=== PATIENT | female | born 1990 | race Caucasian/White ===

== ENCOUNTER 2016-09-22 19:38 | Emergency (ER) | payer BC, MEDICAID ==
[2016-09-22] MEDS ORDERED: Sodium Chloride 0.9% 1000 ML 1,000 ML IV STA (20:01)
[2016-09-22] MEDS ORDERED: Zofran 4 MG/2 ML VIAL IV ONE (20:07)
--- NOTE | 2016-09-22 20:07 | ERPHSYRPT ---
- History of Present Illness Time Seen by Provider: 09/22/16 20:03 Source: patient Exam Limitations: no limitations Physician History: This is a 26-year-old white female she arrives with complaint of cough congestion fever persistent vomiting symptoms for 2 days she states she's been having some left upper quadrant abdominal pain she denies any diarrhea denies any urinary symptoms. Past medical history is negative Past surgical history includes tonsillectomy and adenoidectomy C-sections and myringotomy tubes. Timing/Duration: day(s) (2 days) Severity: moderate Modifying Factors: Improves With: acetaminophen Associated Symptoms: nausea, vomiting, abdominal pain (left upper quadrant abdominal pain left middle quadrant abdominal amanuel), cough, fever, No shortness of breath, No heartburn, No diaphoresis, No chills, No chest pain, No headaches , No loss of appetite, No malaise, No rash, No syncope, No seizure, No weakness Allergies/Adverse Reactions: latex [Latex] Allergy (Verified 09/22/16 20:05) Hx Tetanus, Diphtheria Vaccination/Date Given: No Hx Influenza Vaccination/Date Given: Yes (04/2012) Hx Pneumococcal Vaccination/Date Given: No - Review of Systems Constitutional: Fever, No Chills, No Fatigue, No Lethargy, No Malaise, No Night Sweats, No Weakness, No Weight Loss Eyes: No Symptoms, Other Ears, Nose, & Throat: Ear Pain (right ear pain), Nose Congestion, No Ear Discharge, No Hearing Changes, No Tinnitus, No Nose Pain, No Nose Discharge, No Sinus Drainage, No Epistaxis, No Mouth Pain, No Mouth Swelling, No Loose Teeth, No Throat Pain, No Throat Swelling, No Hoarse, No Painful Swallowing, No Snoring Respiratory: Cough, No Cyanosis, No Dyspnea, No Dyspnea on Exertion ([place]), No Stridor, No Wheezing Cardiac: No Chest Pain, No Edema, No Syncope Abdominal/Gastrointestinal: Abdominal Pain (left upper quadrant left middle quadrant abdominal pain), Nausea, Vomiting, No Diarrhea, No Constipation, No Hematemesis, No Hematochezia, No Melena, No Dysphagia, No Appetite Changes Genitourinary Symptoms: No Dysuria Musculoskeletal: No Back Pain, No Neck Pain Skin: No Rash Neurological: No Dizziness, No Focal Weakness, No Sensory Changes Psychological: No Symptoms Endocrine: No Symptoms All Other Systems: Reviewed and Negative - Past Medical History Pertinent Past Medical History: No Neurological History: No Pertinent History ENT History: No Pertinent History Cardiac History: No Pertinent History Respiratory History: No Pertinent History Endocrine Medical History: No Pertinent History Musculoskeletal History: No Pertinent History GI Medical History: No Pertinent History History: No Pertinent History Psycho-Social History: No Pertinent History Female Reproductive Disorders: No Pertinent History - Past Surgical History Past Surgical History: Yes Neuro Surgical History: No Pertinent History Cardiac: No Pertinent History Respiratory: No Pertinent History Gastrointestinal: No Pertinent History Genitourinary: No Pertinent History Musculoskeletal: No Pertinent History Female Surgical History: Section - Social History Smoking Status: Never smoker Exposure to second hand smoke: No Drug Use: none Patient Lives Alone: No - Female History Hx Now: Yes - Nursing Vital Signs Nursing Vital Signs: Initial Vital Signs Temperature 100.3 F Temperature Source Oral Pulse Rate 96 Respiratory Rate 16 Blood Pressure [Right Arm] 130/78 Pain Intensity 4 - Physical Exam General Appearance: mild distress (Augmentin) Eye Exam: PERRL/EOMI, eyes nml inspection, other (fundi are unremarkable) Ears, Nose, Throat Exam: moist mucous membranes, TM abnormal (L) ( right TM erythematous), No TMs normal (Right TM erythematous), No pharyngeal erythema, No tonsillar exudate Neck Exam: normal inspection, non-tender, supple, full range of motion Respiratory Exam: normal breath sounds, lungs clear, No respiratory distress Cardiovascular Exam: regular rate/rhythm, normal heart sounds, normal peripheral pulses Gastrointestinal/Abdomen Exam: soft, normal bowel sounds, tenderness (left middle and upper quadrant abdominal pain), No mass, No rebound Back Exam: normal inspection, normal range of motion, No CVA tenderness, No vertebral tenderness Extremity Exam: normal inspection, normal range of motion, pelvis stable Neurologic Exam: alert, oriented x 3, cooperative, normal mood/affect, nml cerebellar function, nml station & gait, sensation nml, No motor deficits Skin Exam: normal color, warm, dry, No rash Lymphatic Exam: No adenopathy SpO2 Interpretation: normal (97%) SpO2: 97 Oxygen Delivery: Room Air - Course Nursing assessment & vital signs reviewed: Yes Ordered Tests: Active Orders 24 hr Category Date Time Status Clean Catch Urine Specimen STAT Care 09/22/16 20:07 Active IV Insertion STAT Care 09/22/16 20:01 Active Orthostatic Vital Signs STAT Care 09/22/16 20:56 Active AMYLASE Stat Lab 09/22/16 20:15 Completed CBC W DIFF Stat Lab 09/22/16 20:15 Completed CMP Stat Lab 09/22/16 20:15 Completed CULTURE, THROAT Stat Lab 09/22/16 20:20 Received HCG QUALITATIVE,SERUM Stat Lab 09/22/16 20:15 Completed LIPASE Stat Lab 09/22/16 20:15 Completed STREP SCREEN-BETA A Stat Lab 09/22/16 20:20 Completed UA W/ MICROSCOPIC Stat Lab 09/22/16 20:10 Completed Medication Summary Discontinued Medications Generic Name Dose Route Start Last Admin Trade Name Freq PRN Reason Stop Dose Admin Amoxicillin 500 mg 09/22/16 22:00 Amoxil 500 Mg PO 09/22/16 22:01 STAT ONE Sodium Chloride 1,000 mls @ 999 mls/hr 09/22/16 20:01 09/22/16 20:22 Sodium Chloride 0.9% 1000 Ml IV 09/22/16 21:01 999 mls/hr .Q1H1M STA Administration Sodium Chloride Confirm 09/22/16 20:20 Sodium Chloride 0.9% 1000 Ml Administered 09/22/16 20:21 Dose 1,000 mls @ ud .ROUTE .STK-MED ONE Ondansetron HCl 4 mg 09/22/16 20:07 09/22/16 20:21 Zofran 4 Mg/2 Ml Vial IV 09/22/16 20:08 4 mg STAT ONE Administration Ondansetron HCl Confirm 09/22/16 20:20 Zofran 4 Mg/2 Ml Vial Administered 09/22/16 20:21 Dose 4 mg .ROUTE .STK-MED ONE Oseltamivir Phosphate 75 mg 09/22/16 21:54 Tamiflu 75mg Capsule PO 09/22/16 21:55 STAT ONE Lab/Rad Data: Laboratory Result Diagrams 09/22/16 20:15 09/22/16 20:15 Laboratory Results 09/22/16 09/22/16 09/22/16 Range/Units 20:20 20:20 20:15 WBC 4.8 (4.0-10.5) K/mm3 RBC 4.27 (4.1-5.4) M/mm3 Hgb 13.3 (12.0-16.0) gm/dl Hct 40.0 (35-47) % MCV 93.7 (78-100) fl MCH 31.1 (26-32) pg MCHC 33.3 (32-36) g/dl RDW 11.9 (11.5-14.0) % Plt Count 225 (150-450) K/mm3 MPV 9.6 H (6-9.5) fl Gran % 61.1 (36.0-66.0) % Lymphocytes % 26.1 (24.0-44.0) % Monocytes % 12.6 H (0.0-12.0) % Eosinophils % 0.0 (0.00-5.0) % Basophils % 0.2 (0.0-0.4) % Basophils # 0.01 (0-0.4) Sodium (136-145) mEq/L Potassium (3.5-5.1) mEq/L Chloride (98-107) mEq/L Carbon Dioxide (21-32) mEq/L Anion Gap (5-15) MEQ/L BUN (9-20) mg/dL Creatinine (0.55-1.30) mg/dl Estimated GFR ML/MIN Glucose (70-110) MG/DL Calcium (8.5-10.1) mg/dL Total Bilirubin (0.2-1.0) mg/dL AST (15-37) U/L ALT (12-78) U/L Alkaline Phosphatase (46-116) U/L Serum Total Protein (6.4-8.2) gm/dL Albumin (3.4-5.0) g/dL Amylase (25-115) U/L Lipase (73-393) U/L Serum , Qual (Negative) Ur Collection Type Urine Color (YELLOW) Urine Appearance (CLEAR) Urine pH (5-6) Ur Specific [place] (1.005-1.025) Urine Protein (Negative) Urine Glucose (UA) (NEGATIVE) mg/dL Urine Ketones (NEGATIVE) Urine Nitrite (NEGATIVE) Urine Bilirubin (NEGATIVE) Urine Urobilinogen (0-1) mg/dL Urine WBC (Auto) (NEGATIVE) Urine RBC (Auto) (0-5) Dayday/ul Urine Microscopic RBC (0-2) /HPF Urine Microscopic WBC (0-5) /HPF Ur Epithelial Cells (FEW) /HPF Urine Bacteria (NEGATIVE) /HPF Urine Mucus (NEGATIVE) /HPF Influenza Type A Ag NEGATIVE (NEGATIVE) Influenza Type B Ag POSITIVE (NEGATIVE) RSV (PCR) NEGATIVE (Negative) Streptococcus Screen NEGATIVE (Negative) Specimen Received 09/22/16 09/22/16 09/22/16 Range/Units 20:15 20:15 20:10 WBC (4.0-10.5) K/mm3 RBC (4.1-5.4) M/mm3 Hgb (12.0-16.0) gm/dl Hct (35-47) % MCV (78-100) fl MCH (26-32) pg MCHC (32-36) g/dl RDW (11.5-14.0) % Plt Count (150-450) K/mm3 MPV (6-9.5) fl Gran % (36.0-66.0) % Lymphocytes % (24.0-44.0) % Monocytes % (0.0-12.0) % Eosinophils % (0.00-5.0) % Basophils % (0.0-0.4) % Basophils # (0-0.4) Sodium 138 (136-145) mEq/L Potassium 4.0 (3.5-5.1) mEq/L Chloride 103 (98-107) mEq/L Carbon Dioxide 23.2 (21-32) mEq/L Anion Gap 15.5 H (5-15) MEQ/L BUN 11 (9-20) mg/dL Creatinine 0.83 (0.55-1.30) mg/dl Estimated GFR > 60 ML/MIN Glucose 93 (70-110) MG/DL Calcium 8.6 (8.5-10.1) mg/dL Total Bilirubin < 0.1 L (0.2-1.0) mg/dL AST 28 (15-37) U/L ALT 31 (12-78) U/L Alkaline Phosphatase 87 (46-116) U/L Serum Total Protein 7.5 (6.4-8.2) gm/dL Albumin 3.7 (3.4-5.0) g/dL Amylase 52 (25-115) U/L Lipase 115 (73-393) U/L Serum , Qual NEGATIVE (Negative) Ur Collection Type CCMS Urine Color YELLOW (YELLOW) Urine Appearance SLIGHTLY CLOUDY (CLEAR) Urine pH 5.5 (5-6) Ur Specific [place] 1.025 (1.005-1.025) Urine Protein TRACE (Negative) Urine Glucose (UA) NEGATIVE (NEGATIVE) mg/dL Urine Ketones >=160 (NEGATIVE) Urine Nitrite NEGATIVE (NEGATIVE) Urine Bilirubin SMALL (NEGATIVE) Urine Urobilinogen 0.2 (0-1) mg/dL Urine WBC (Auto) NEGATIVE (NEGATIVE) Urine RBC (Auto) MODERATE (0-5) Dayday/ul Urine Microscopic RBC 2-5 (0-2) /HPF Urine Microscopic WBC 2-5 (0-5) /HPF Ur Epithelial Cells MANY (FEW) /HPF Urine Bacteria MODERATE (NEGATIVE) /HPF Urine Mucus MODERATE (NEGATIVE) /HPF Influenza Type A Ag (NEGATIVE) Influenza Type B Ag (NEGATIVE) RSV (PCR) (Negative) Streptococcus Screen (Negative) Specimen Received 09-22-16 2030 - Progress Progress: improved Progress Note: 09/22/16 21:55 Patient feeling better after Zofran and IV fluids. Patient does have right otitis media. Patient also with positive influenza B. Will write for Tamiflu, [email or web address] - Departure Time of Disposition: 21:56 Departure Disposition: Home Clinical Impression: Influenza B Right otitis media Qualifiers: Otitis media type: suppurative Chronicity: unspecified Qualified Code(s): H66.41 - Suppurative otitis media, unspecified, right ear Vomiting Qualifiers: Vomiting type: unspecified Vomiting Intractability: non-intractable Nausea presence: with nausea Qualified Code(s): R11.2 - Nausea with vomiting, unspecified Abdominal pain Qualifiers: Abdominal location: left upper quadrant Qualified Code(s): R10.12 - Left upper quadrant pain Condition: Fair Critical Care Time: No Referrals: TWIN SANCHES MD [Primary Care Provider] - Instructions: Abdominal Pain-Adult Additional Instructions: Return home. Plenty of fluids. Clear fluids only 24-48 hours if abdominal pain nausea or vomiting. Tamiflu 75 mg orally twice a day for 5 days. Amoxicillin 500 mg orally 3 times a day for 10 days. Zofran 4 mg orally every 4-6 hours as needed for nausea and vomiting #12. Tylenol every 4 hours as needed for pain or temperature greater than 100.5. Follow-up with your family doctor if symptoms are worse, no better in 48 hours, or persist longer than one week. Return for acute distress or for severe symptoms. Prescriptions: Amoxicillin 500 mg PO TID #30 capsule Ondansetron [Zofran Odt] 4 mg PO Q4-6HPRN PRN #12 tab.rapdis PRN Reason: nausea and vomiting Oseltamivir 75 mg [Tamiflu 75MG Capsule] 75 mg PO BID #10 cap
[2016-09-22] MEDS ORDERED: Sodium Chloride 0.9% 1000 ML 1,000 ML ONE (20:20)
[2016-09-22] MEDS ORDERED: Zofran 4 MG/2 ML VIAL ONE (20:20)
[2016-09-22 20:25] LABS: BASOPHIL % 0.2 % (0.0-0.4); Granulocytes % 61.1 % (36.0-66.0); Lymphocytes % 26.1 % (24.0-44.0); Mean Cell Volume 93.7 fl (78-100); Mean Corpuscular Hemoglobin 31.1 pg (26-32); Mean Platelet Volume 9.6 fl (6-9.5); Monocytes % 12.6 % (0.0-12.0); Platelet Count 225 K/mm3 (150-450); Red Blood Count 4.27 M/mm3 (4.1-5.4); Red Cell Distribution Width 11.9 % (11.5-14.0); White Blood Count 4.8 K/mm3 (4.0-10.5)
[2016-09-22 20:40] LABS: Collection Type CCMS
[2016-09-22 20:41] LABS: Bacteria MODERATE /HPF (NEGATIVE); COMPLETE URINE MICROSCOPIC? YES; Epithelial Cells MANY /HPF (FEW); Mucus MODERATE /HPF (NEGATIVE); Ph 5.5 (5-6)
[2016-09-22 20:50] LABS: ALBUMIN 3.7 g/dL (3.4-5.0); ALKALINE PHOSPHATASE 87 U/L (46-116); ANION GAP 15.5 MEQ/L (5-15); BLOOD UREA NITROGEN 11 mg/dL (9-20); CHLORIDE 103 mEq/L (98-107); Carbon Dioxide 23.2 mEq/L (21-32); Glucose 93 MG/DL (70-110); LIPASE 115 U/L (73-393); SGOT/AST 28 U/L (15-37); SGPT/ALT 31 U/L (12-78); SODIUM 138 mEq/L (136-145); Total Protein 7.5 gm/dL (6.4-8.2)
[2016-09-22 20:51] LABS: BILIRUBIN,TOTAL < 0.1 mg/dL (0.2-1.0)
[2016-09-22] MEDS ORDERED: Tamiflu 75MG Capsule PO ONE ×2 (21:54→22:00)
[2016-09-22] MEDS ORDERED: AMOXIL 500 MG PO ONE (22:00)
[2016-09-22] MEDS ORDERED: AMOXIL 500 MG ONE (22:04)
[2016-09-22 22:22] VITALS: BP 156/70; PULSE 88; O2SAT 98
== END 2016-09-22 22:21 | disposition home or self-care (01) ==
LOC: ED 19:38
DX: H66.41 Suppurative otitis media, unspecified, right ear (principal); R11.2 Nausea with vomiting, unspecified; R10.12 Left upper quadrant pain; J11.1 Influenza due to unidentified influenza virus with other respiratory manifestations; R05 Cough; R50.9 Fever, unspecified
CPT/HCPCS: 36000; 36415; 80053; 81000; 82150; 83690; 84703; 85025; 87070; 87430; 87631; 96360; 96374; 99284; J2405

== ENCOUNTER 2019-02-23 15:44 | Emergency (ER) | payer BC ==
--- NOTE | 2019-02-23 16:57 | ERPHSYRPT ---
- History of Present Illness Time Seen by Provider: 02/23/19 16:46 Source: patient Exam Limitations: no limitations Patient Subjective Stated Complaint: PT states "I tripped an rolled my left ankle, I did not fall. I went to [facility] and they said because I am so they sent me down to you." Triage Nursing Assessment: Pt presented alert and oriented X 3, skin pwd. PT ambutes with a limp. PT left ankle slightly swollen, no bruising, deformity noted. No other injuries or complaints. Physician History: 29-year-old white female who states that she 36-4/7 weeks arrives with complaint of left ankle pain symptoms since around 3:00 this afternoon. She states that she twisted her ankle. She apparently was seen at [facility] and they told her to come to the emergency room she has no other complaints. Past medical history negative past surgical history tonsillectomy and adenoidectomy, Method of Injury: twisted Occurred: this afternoon (3:00 this afternoon) Quality: constant Severity of Pain-Max: moderate Severity of Pain-Current: moderate Lower Extremities Pain: ankle: left Modifying Factors: Improves With: nothing Associated Symptoms: none Allergies/Adverse Reactions: latex [Latex] Allergy (Verified 09/22/16 20:05) Home Medications: Ferrous Sulfate 325 mg PO DAILY 02/23/19 [History] Vits W-Ca,Fe,FA(<1Mg) [] 1 each PO 02/23/19 [History] Hx Tetanus, Diphtheria Vaccination/Date Given: Yes Hx Influenza Vaccination/Date Given: Yes Hx Pneumococcal Vaccination/Date Given: No Immunizations Up to Date: Yes - Review of Systems Constitutional: No Fever, No Chills Eyes: No Symptoms Ears, Nose, & Throat: No Symptoms Respiratory: No Cough, No Dyspnea Cardiac: No Chest Pain, No Edema, No Syncope Abdominal/Gastrointestinal: Other (patient is 36-4/7 weeks) Genitourinary Symptoms: No Dysuria Musculoskeletal: Injury (twisted left ankle), Other (left ankle pain) Skin: No Rash Neurological: No Dizziness, No Focal Weakness, No Sensory Changes Psychological: No Symptoms Endocrine: No Symptoms All Other Systems: Reviewed and Negative - Past Medical History Pertinent Past Medical History: No Neurological History: No Pertinent History ENT History: No Pertinent History Cardiac History: No Pertinent History Respiratory History: No Pertinent History Endocrine Medical History: No Pertinent History Musculoskeletal History: No Pertinent History GI Medical History: No Pertinent History History: No Pertinent History Psycho-Social History: No Pertinent History Female Reproductive Disorders: No Pertinent History - Past Surgical History Past Surgical History: Yes Neuro Surgical History: No Pertinent History Cardiac: No Pertinent History Respiratory: No Pertinent History Gastrointestinal: No Pertinent History Genitourinary: No Pertinent History Musculoskeletal: No Pertinent History Female Surgical History: Section - Social History Smoking Status: Never smoker Exposure to second hand smoke: No Drug Use: none Patient Lives Alone: No - Female History Hx Last Menstrual Period: 05/18/2018 Hx Now: Yes Expected Date of Delivery: 02/16/19 - Nursing Vital Signs Nursing Vital Signs: Initial Vital Signs Temperature 100.0 F 02/23/19 15:49 Pulse Rate 103 H 02/23/19 15:49 Respiratory Rate 18 02/23/19 15:49 Blood Pressure 127/55 02/23/19 15:49 Pain Scale Pain Intensity 2 - Physical Exam General Appearance: no apparent distress, alert Eyes, Ears, Nose, Throat Exam: moist mucous membranes Neck Exam: non-tender, supple Cardiovascular/Respiratory Exam: chest non-tender, normal breath sounds, regular rate/rhythm, no respiratory distress Gastrointestinal/Abdominal Exam: non-tender (gravid abdomen), guarding Back Exam: normal inspection (aand and an in and), No vertebral tenderness Hips Exam: bilateral: non-tender, normal inspection, normal range of motion, no evidence of injury Legs Exam: bilateral leg: non-tender, normal inspection, normal range of motion , no evidence of injury Knees Exam: bilateral knee: non-tender, normal inspection, normal range of motion, no evidence of injury Ankle Exam: right ankle: non-tender, normal inspection, normal range of motion, no evidence of injury, left ankle: other (left ankle tender with palpationand movementaanteriorly and laterally) Foot Exam: bilateral foot: non-tender, normal inspection, normal range of motion , no evidence of injury DTR - Lower Extremities Exam: ankle (R): 2+, ankle (L): 2+ Neuro/Tendon Exam: normal sensation, normal motor functions Mental Status Exam: alert, oriented x 3, cooperative Skin Exam: normal color, warm, dry SpO2 Interpretation: normal (9When he is and7%) - Course Nursing assessment & vital signs reviewed: Yes - Radiology Exams Left Ankle X-ray Interpretation: Interpreted by me (negative fractures negative subluxation ) Ordered Tests: Active Orders 24 hr Category Date Time Status Heart Tones-ED STAT Care 02/23/19 17:48 Active Splint STAT Care 02/23/19 17:47 Active ANKLE (3 VIEWS) Stat Exams 02/23/19 17:42 Completed - Progress Progress: improved Progress Note: 02/23/19 17:49 X-ray left ankle negative fracture negative dislocation. Patient is offered Tylenol for pain she does not want it at this time. Will have nurse apply an air cast left ankle. Will obtain heart tones on this patient due to to patient's Advanced stage of patient without any abdominal pain or discomfort and vitals are stable. 02/23/19 17:52 heart tones 152 per OB nurse 02/24/19 07:17 Patient his abdomen was shielded for x-rays - Departure Departure Disposition: Home Clinical Impression: Left ankle strain Qualifiers: Encounter type: initial encounter Qualified Code(s): S96.912A - Strain of unspecified muscle and tendon at ankle and foot level, left foot, initial encounter Condition: Fair Critical Care Time: No Referrals: TWIN SANCHES MD [Primary Care Provider] - Additional Instructions: Return home. Ice and elevate left ankle 24-48 hours. Followup with your family DrThais if symptoms worse, no better in 48 hours or persist longer than one week. Return for acute distress or for severe symptoms or for any problems. Tylenol every 4 hours as needed for pain.
[2019-02-23 17:23] VITALS: BP 108/69
[2019-02-23 17:53] VITALS: PULSE 101; O2SAT 98
--- NOTE | 2019-02-23 22:28 | XRAY ---
Indication: Pain following twisting injury. Comparison: None 3 views of the left ankle obtained. No bony, articular, or soft tissue abnormalities.
== END 2019-02-23 18:13 | disposition home or self-care (01) ==
LOC: ED 15:44
DX: S96.912A Strain of unspecified muscle and tendon at ankle and foot level, left foot, initial encounter (principal); X50.0XXA Overexertion from strenuous movement or load, initial encounter; Z3A.36 36 weeks gestation of pregnancy
CPT/HCPCS: 73610; 99284

== ENCOUNTER 2019-03-14 04:22 | Inpatient (IN) | payer BC | END 2019-03-16 13:45 | disposition home or self-care (01) | LOC: OB 04:22 ==

== ENCOUNTER 2020-03-07 18:50 | Emergency (ER) | payer BC ==
[2020-03-07] MEDS ORDERED: Zofran 4 MG/2 ML VIAL IV ONE (19:24)
[2020-03-07] MEDS ORDERED: Reglan 10 MG/2 ML IV ONE (19:24)
[2020-03-07] MEDS ORDERED: TYLENOL 325 MG PO ONE (19:24)
[2020-03-07] MEDS ORDERED: BENADRYL 50 MG/ML IV ONE (19:24)
[2020-03-07] MEDS ORDERED: Sodium Chloride 0.9% 1000 ML 1,000 ML IV STA (19:24)
[2020-03-07] MEDS ORDERED: TORAdol 30 mg Injection IV ONE (19:24)
--- NOTE | 2020-03-07 19:32 | ERPHSYRPT ---
- History of Present Illness Time Seen by Provider: 03/07/20 19:00 Source: patient Exam Limitations: no limitations Patient Subjective Stated Complaint: pt reports worse headache she's ever had. states it began approx 1400 after eating lunch, pt also reports around 10 epis odes of emesis today as well as nausea and slight dizziness. pt reports pain is increased with movement of her head. pt denies LOC. Triage Nursing Assessment: pt is aox3, pupils perrl, speech is clear, answers questions appropriately, no facial droop noted, afebrile, resps easy and non labored, cap refill < 3 seconds, radial pulses strong and equal, pt skin pale warm dry. Physician History: The patient is a 30 y/o female who presents with a headache located to the left/frontal aspect of her head, left retroorbital eye pain, photophobia, and n ausea that started this afternoon around 14:00-14:30. Pain is constant, non-radiating, mild to moderate in severity. She reports that she gets on average 2 headaches a week and normally takes excederin and the headache is relieved but today it was not. She reports taking a [place] that was left over from a prior prescription with no relief. Timing/Duration: today, other (14:00-14:30 this afternoon) Head Pain Location: parietal (left parietal) Allergies/Adverse Reactions: latex [Latex] Allergy (Severe, Verified 03/07/20 19:04) Hives itchy Hx Tetanus, Diphtheria Vaccination/Date Given: Yes Hx Influenza Vaccination/Date Given: Yes Hx Pneumococcal Vaccination/Date Given: No Immunizations Up to Date: Yes Travel Risk - International Travel Have you traveled outside of the country in past 3 weeks: No - Coronavirus Screening Are you exhibiting any of the following symptoms?: No Close contact with a COVID-19 positive Pt in past 14-21 Days: No - Review of Systems Constitutional: No Fever, No Chills, No Fatigue Eyes: Eye Pain, Photophobia, Other, No Eye Redness, No Vision Changes, No Double Vision, No Foreign Body Sensation Ears, Nose, & Throat: Other (Phonophobia) Respiratory: No Symptoms Cardiac: No Symptoms Abdominal/Gastrointestinal: Nausea Genitourinary Symptoms: No Symptoms Musculoskeletal: No Symptoms Skin: No Symptoms Neurological: No Symptoms Psychological: No Symptoms All Other Systems: Reviewed and Negative - Past Medical History Pertinent Past Medical History: No Neurological History: No Pertinent History ENT History: No Pertinent History Cardiac History: No Pertinent History Respiratory History: No Pertinent History Endocrine Medical History: No Pertinent History Musculoskeletal History: No Pertinent History GI Medical History: No Pertinent History History: No Pertinent History Psycho-Social History: No Pertinent History Female Reproductive Disorders: No Pertinent History - Past Surgical History Past Surgical History: Yes Neuro Surgical History: No Pertinent History Cardiac: No Pertinent History Respiratory: No Pertinent History Gastrointestinal: No Pertinent History Genitourinary: No Pertinent History Musculoskeletal: No Pertinent History Female Surgical History: Section, Tubal Ligation - Social History Smoking Status: Never smoker Exposure to second hand smoke: No Drug Use: none Patient Lives Alone: No - Female History Hx Last Menstrual Period: 02/25/20 Hx Now: No (tubal) - Nursing Vital Signs Nursing Vital Signs: Initial Vital Signs Temperature 98.1 F 03/07/20 18:55 Pulse Rate 73 03/07/20 18:55 Respiratory Rate 20 03/07/20 18:55 Blood Pressure 137/91 03/07/20 18:55 O2 Sat by Pulse Oximetry 99 03/07/20 18:55 Pain Scale Pain Intensity 1 - Physical Exam General Appearance: no apparent distress, alert, other (Sitting up in bed smiling with her legs crossed and operating her smart phone. She appeared to be in no obvious distress.) Eye Exam: PERRL/EOMI, eyes nml inspection, photophobia, No scleral icterus, No pale conjunctivae, No EOM palsy/anisocoria Ears, Nose, Throat Exam: normal ENT inspection, TMs normal, pharynx normal, No pharyngeal erythema, No tonsillar exudate Neck Exam: normal inspection, non-tender, supple, No meningismus Respiratory Exam: normal breath sounds Cardiovascular Exam: regular rate/rhythm, normal heart sounds, normal peripheral pulses, capillary refill <2 sec, No gallop, No edema Gastrointestinal/Abdominal Exam: soft Extremity Exam: normal inspection Mental Status Exam: alert, oriented x 3, cooperative divorce attorney Exam: normal speech, PERRL, tongue midline, No abnormal pupil position, No abnormal speech, No facial asymmetry, No facial droop, No facial paresthesias, No facial weakness, No gaze palsy, No hearing deficit (R), No hearing deficit (L), No tongue deviation to R, No tongue deviation to L Motor/Sensory Exam: no motor deficit, no sensory deficit, no pronator drift, No weak motor strength LUE, No weak motor strength RLE, No weak motor strength LLE DTR Exam: bicep (R): 2+, bicep (L): 2+, knee (R): 2+, knee (L): 2+ Skin Exam: normal color, warm, dry, No rash, No petechiae SpO2 Interpretation: normal SpO2: 99 O2 Delivery: Room Air - Course Nursing assessment & vital signs reviewed: Yes Ordered Tests: Active Orders 24 hr Category Date Time Status IV Insertion STAT Care 03/07/20 19:24 Completed HCG,QUALITATIVE URINE Stat Lab 03/07/20 20:38 Completed Medication Summary Discontinued Medications Generic Name Dose Route Start Last Admin Trade Name Freq PRN Reason Stop Dose Admin Acetaminophen 975 mg 03/07/20 19:24 03/07/20 19:57 Tylenol 325 Mg PO 03/07/20 19:25 975 mg STAT ONE Administration Acetaminophen Confirm 03/07/20 19:48 Tylenol 325 Mg Administered 03/07/20 19:49 Dose 975 mg .ROUTE .STK-MED ONE Diphenhydramine HCl 12.5 mg 03/07/20 19:24 03/07/20 19:56 Benadryl 50 Mg/Ml IV 03/07/20 19:25 12.5 mg STAT ONE Administration Diphenhydramine HCl Confirm 03/07/20 19:47 Benadryl 50 Mg/Ml Administered 03/07/20 19:48 Dose 50 mg .ROUTE .STK-MED ONE Sodium Chloride 1,000 mls @ 999 mls/hr 03/07/20 19:24 03/07/20 21:18 Sodium Chloride 0.9% 1000 Ml IV 03/07/20 20:24 Infused .Q1H1M STA Infusion Sodium Chloride Confirm 03/07/20 19:48 Sodium Chloride 0.9% 1000 Ml Administered 03/07/20 19:49 Dose 1,000 mls @ ud .ROUTE .STK-MED ONE Ketorolac Tromethamine 15 mg 03/07/20 19:24 03/07/20 19:57 Toradol 30 Mg Injection IV 03/07/20 19:25 15 mg STAT ONE Administration Ketorolac Tromethamine Confirm 03/07/20 19:47 Toradol 30 Mg Injection Administered 03/07/20 19:48 Dose 30 mg .ROUTE .STK-MED ONE Metoclopramide HCl 10 mg 03/07/20 19:24 03/07/20 19:56 Reglan 10 Mg/2 Ml IV 03/07/20 19:25 10 mg STAT ONE Administration Metoclopramide HCl Confirm 03/07/20 19:48 Reglan 10 Mg/2 Ml Administered 03/07/20 19:49 Dose 10 mg .ROUTE .STK-MED ONE Ondansetron HCl 4 mg 03/07/20 19:24 03/07/20 19:58 Zofran 4 Mg/2 Ml Vial IV 03/07/20 19:25 4 mg STAT ONE Administration Ondansetron HCl Confirm 03/07/20 19:47 Zofran 4 Mg/2 Ml Vial Administered 03/07/20 19:48 Dose 4 mg .ROUTE .STK-MED ONE Lab/Rad Data: Laboratory Results 03/07/20 Range/Units 20:38 Urine HCG, Qual NEGATIVE (Negative) - Progress Progress: improved Air Movement: good Progress Note: 03/07/20 19:38 Well-appearing female who presents with headache symptoms that sound clinically like a migraine. She has no neuro deficits or concern for meningismus. Despite her telling me this is the worst headache she ever experienced. She appears comfortable and in no obvious distress. I currently have a low suspicion for SAH and the patient has no additional flag features for a headache. Because of this, I chose to defer neurocranial imaging and will treat for a migraine at this time. Once she is comfortable, she'll be discharge home to f/u with PCP. UPT will be cheched to r/o and potential related complications that can cause headache. Counseled pt/family regarding: lab results, diagnosis, need for follow-up - Departure Departure Disposition: Home Clinical Impression: Migraine Condition: Good Critical Care Time: No Referrals: TWIN SANCHES MD [Primary Care Provider] - Instructions: Migraines (DC) Additional Instructions: Take Tylenol and/or ibuprofen as needed for any pain. You can purchase these medications [id number]. Please take these medications as instructed on the medication bottle. Please follow-up with your primary care provider for further evaluation and management of your headache symptoms. Prescriptions: Ondansetron [Ondansetron Odt] 4 mg PO Q4-6HPRN PRN #20 tab.rapdis PRN Reason: Vomiting
[2020-03-07] MEDS ORDERED: BENADRYL 50 MG/ML ONE (19:47)
[2020-03-07] MEDS ORDERED: TORAdol 30 mg Injection ONE (19:47)
[2020-03-07] MEDS ORDERED: Zofran 4 MG/2 ML VIAL ONE (19:47)
[2020-03-07] MEDS ORDERED: TYLENOL 325 MG ONE (19:48)
[2020-03-07] MEDS ORDERED: Reglan 10 MG/2 ML ONE (19:48)
[2020-03-07] MEDS ORDERED: Sodium Chloride 0.9% 1000 ML 1,000 ML ONE (19:48)
[2020-03-07 21:20] VITALS: BP 116/60; PULSE 62
[2020-03-08 05:43] VITALS: O2SAT 99
== END 2020-03-07 21:33 | disposition home or self-care (01) ==
LOC: ED 18:50
DX: G43.909 Migraine, unspecified, not intractable, without status migrainosus (principal)
CPT/HCPCS: 36000; 84703; 96360; 96374; 96375; 99284; J1200; J1885; J2405; A9270-GY